=== PATIENT | female | born 1955 | race Caucasian/White ===

== ENCOUNTER 2022-05-06 10:35 | Outpatient (RCR) | payer MEDICARE, OTHER | END 2022-05-10 | LOC: OT 10:35 | PROVIDERS: ATTEND Plastic Surgery | DX: S63.610D Unspecified sprain of right index finger, subsequent encounter (principal); M79.641 Pain in right hand; M25.641 Stiffness of right hand, not elsewhere classified; M25.441 Effusion, right hand; R53.1 Weakness ==

== ENCOUNTER → 2022-06-07 | Outpatient (RCR) | payer MEDICARE, OTHER | LOC: OT 05-11 09:31 | PROVIDERS: ATTEND Plastic Surgery | DX: S63.690A Other sprain of right index finger, initial encounter (principal) ==

== ENCOUNTER 2022-06-14 10:58 | Outpatient (RCR) | payer MEDICARE, OTHER | END 2022-07-08 | LOC: OT 10:58 | PROVIDERS: ATTEND Plastic Surgery | DX: S63.690A Other sprain of right index finger, initial encounter (principal) ==

== ENCOUNTER → 2024-02-12 | Outpatient (REF) | payer MEDICARE, OTHER | LOC: CT 11:33 | PROVIDERS: ATTEND Internal Medicine | DX: R06.09 Other forms of dyspnea (principal) | CPT/HCPCS: 71250 ==

== ENCOUNTER → 2024-03-22 | Outpatient (REF) | payer MEDICARE, OTHER | LOC: NM 12:41 | PROVIDERS: ATTEND Internal Medicine Critical Care Medicine | DX: R06.00 Dyspnea, unspecified (principal) | CPT/HCPCS: 78580; A9540 ==